=== PATIENT | male | born 1970 | race African-American/Black ===

== ENCOUNTER 2019-06-05 10:06 | Emergency (ER) | payer BC, MEDICAID ==
[~2019-06-05] VITALS: Ht 175.3 cm; Wt 97.0 kg
[2019-06-05 10:11] VITALS: BP 134/67
[2019-06-05] MEDS ORDERED: LIDOCAINE HCL 1% 20ML VIAL (Pyxis) INJ INFIL ONE (16:00)
== END 2019-06-05 17:56 | disposition home or self-care (01) ==
LOC: ER 10:06
DX: S60.453A Superficial foreign body of left middle finger, initial encounter (principal); Z98.890 Other specified postprocedural states; F12.10 Cannabis abuse, uncomplicated; X58.XXXA Exposure to other specified factors, initial encounter; Y93.89 Activity, other specified; Y92.89 Other specified places as the place of occurrence of the external cause; Y99.8 Other external cause status
CPT/HCPCS: 99284

== ENCOUNTER 2020-10-13 11:04 | Emergency (ER) | payer BC, MEDICAID ==
[~2020-10-13] VITALS: Ht 177.8 cm; Wt 98.0 kg
[2020-10-13 11:40] VITALS: BP 133/78
[2020-10-13] MEDS ORDERED: VISCOUS LIDOCAINE 2% 15 ML UDC PO STA ×2 (12:08→12:45)
[2020-10-13] MEDS ORDERED: MAGNESIUM/ALUMINUM HYDROXIDE/SIMETHICONE 30ML UDC PO STA ×2 (12:08→12:45)
[2020-10-13] MEDS ORDERED: FAMOTIDINE 20MG/2ML VIAL IV ONE (12:45)
[2020-10-13 12:53] LABS: BASOPHILS % 0.2 % (0.0-2.0); EOSINOPHILS % 2.3 % (0.0-5.0); HEMATOCRIT. 41.6 % (42.0-52.0); HEMOGLOBIN. 14.7 g/dL (14.0-18.0); LYMPHOCYTES % 37.9 % (20.0-50.0); MEAN CORPUSCULAR HEMOGLOBIN 33.1 pg (28.0-32.0); MEAN CORPUSCULAR VOLUME 93.5 fL (80.0-94.0); MONOCYTES % 9.9 % (2.0-8.0); NEUTROPHILS % 49.7 % (40.0-76.0); PLATELET 271 x1000/uL (130-400); RED BLOOD CELL COUNT 4.45 mill/uL (4.7-6.1); RED CELL DISTRIBUTION WIDTH 14.3 % (11.6-14.6)
[2020-10-13 13:01] LABS: CHLORIDE 106 mEq/L (98-107)
[2020-10-13 13:09] LABS: PROTHROMBIN TIME 10.5 sec (9.6-11.0)
[2020-10-13 13:12] LABS: CLARITY URINE CLEAR (CLEAR); COLOR URINE YELLOW (YELLOW); KETONES URINE NEGATIVE (NEGATIVE); LEUKOCYTE ESTERASE URINE NEGATIVE (NEGATIVE); NITRITE URINE NEGATIVE (NEGATIVE); OCCULT BLOOD URINE NEGATIVE (NEGATIVE); PROTEIN URINE NEGATIVE (NEGATIVE); SPECIFIC GRAVITY URINE 1.023 (1.005-1.030); UROBILINOGEN URINE 0.2 E.U./dL (0.2-1.0)
[2020-10-13] MEDS ORDERED: OMEP20CA14 MT (14:11)
== END 2020-10-13 14:38 | disposition home or self-care (01) ==
LOC: ER 11:04
DX: K29.00 Acute gastritis without bleeding (principal); F12.10 Cannabis abuse, uncomplicated; F10.10 Alcohol abuse, uncomplicated; Y90.9 Presence of alcohol in blood, level not specified
CPT/HCPCS: 36415; 80053; 81003; 83690; 85025; 85610; 96374; 99283; J3490

== ENCOUNTER 2021-08-07 09:48 | Emergency (ER) | payer BC, MEDICAID ==
[~2021-08-07] VITALS: Ht 177.8 cm; Wt 100.0 kg
[~2021-08-07 09:48] MED LIST: OMEP20CA14 MT
[2021-08-07 09:53] VITALS: BP 142/94
[2021-08-07] MEDS ORDERED: ACETAMINOPHEN 325MG TABLET PO ONE (10:15)
[2021-08-07] MEDS ORDERED: LIDO1ADH5 TP (12:02)
== END 2021-08-07 12:06 | disposition home or self-care (01) ==
LOC: ER 09:48
DX: M25.512 Pain in left shoulder (principal); M19.012 Primary osteoarthritis, left shoulder; F12.10 Cannabis abuse, uncomplicated
CPT/HCPCS: 73030; 99283

== ENCOUNTER 2022-01-21 13:06 | Emergency (ER) | payer BC, MEDICAID ==
[~2022-01-21] VITALS: Ht 175.3 cm; Wt 90.0 kg
[~2022-01-21 13:06] MED LIST changes: +LIDO1ADH5 TP
[2022-01-21 13:28] VITALS: BP 134/89
[2022-01-21] MEDS ORDERED: NAPR-681 PO (16:45)
[2022-01-21] MEDS ORDERED: TRAM50TA3 PO (16:45)
== END 2022-01-21 17:30 | disposition home or self-care (01) ==
LOC: ER 13:06
DX: S42.402A Unspecified fracture of lower end of left humerus, initial encounter for closed fracture (principal); S53.402A Unspecified sprain of left elbow, initial encounter; F12.10 Cannabis abuse, uncomplicated; W18.30XA Fall on same level, unspecified, initial encounter; Y93.89 Activity, other specified; Y92.89 Other specified places as the place of occurrence of the external cause; Y99.8 Other external cause status
CPT/HCPCS: 99282

== ENCOUNTER 2022-08-17 08:50 | Emergency (ER) | payer BC, MEDICAID ==
[~2022-08-17] VITALS: Ht 182.9 cm; Wt 78.0 kg
[~2022-08-17 08:50] MED LIST changes: +NAPR-681 PO; +TRAM50TA3 PO
[2022-08-17 08:57] VITALS: BP 132/90
[2022-08-17] MEDS ORDERED: TOPUD PO (10:37)
== END 2022-08-17 11:06 | disposition home or self-care (01) ==
LOC: ER 08:50
DX: H92.01 Otalgia, right ear (principal); F12.10 Cannabis abuse, uncomplicated; Z79.899 Other long term (current) drug therapy
CPT/HCPCS: 99282

== ENCOUNTER 2023-08-19 20:01 | Emergency (ER) | payer BC, MEDICAID ==
[~2023-08-19] VITALS: Ht 172.7 cm; Wt 81.0 kg
[~2023-08-19 20:01] MED LIST changes: +TOPUD PO
[2023-08-19 20:12] VITALS: TEMP 98.6; O2SAT 100
[2023-08-19] MEDS: LIDOCAINE 5% PATCH TOP SCH (20:30)
[2023-08-19] MEDS ORDERED: KETOROLAC 15MG/ML VIAL IM ONE (20:30)
[2023-08-19] MEDS ORDERED: NAPR-1176 MT (22:40)
[2023-08-19] MEDS ORDERED: LIDO700A15 TP (22:40)
[2023-08-19 23:00] VITALS: BP 112/66; PULSE 93; RESP 12
[2023-08-19] MEDS: KETOROLAC 15MG/ML VIAL IM ONE (23:00)
== END 2023-08-19 22:45 | disposition home or self-care (01) ==
LOC: ER 20:01
DX: M54.9 Dorsalgia, unspecified (principal); F12.90 Cannabis use, unspecified, uncomplicated
CPT/HCPCS: 99282; J1885

== ENCOUNTER 2023-08-30 07:43 | Emergency (ER) | payer SELFPAY ==
[2023-08-19 20:12] VITALS: O2SAT 100
[~2023-08-30 07:43] MED LIST changes: +LIDO700A15 TP; +NAPR-1176 MT
[2023-08-30] MEDS ORDERED: BENZ150C8 MT (09:18)
[2023-08-30] MEDS ORDERED: DEXTL MT (09:18)
[2023-08-30 09:33] VITALS: BP 151/88; PULSE 93; RESP 18; TEMP 98.6
== END 2023-08-30 15:15 | disposition home or self-care (01) ==
LOC: ER 10:23
DX: R05.9 Cough, unspecified (principal); J40 Bronchitis, not specified as acute or chronic; B34.9 Viral infection, unspecified; F12.10 Cannabis abuse, uncomplicated
CPT/HCPCS: 71045; 99283

== ENCOUNTER 2024-04-02 09:10 | Emergency (ER) | payer SELFPAY ==
[~2024-04-02] VITALS: Ht 180.3 cm; Wt 120.0 kg
[~2024-04-02 09:10] MED LIST changes: +BENZ150C8 MT; +DEXTL MT
[2024-04-02 09:28] VITALS: BP 122/81; PULSE 59; RESP 18; TEMP 98.1; O2SAT 99
[2024-04-02] MEDS ORDERED: AMOX-494 MT (11:06)
== END 2024-04-02 11:56 | disposition home or self-care (01) ==
LOC: ER 09:19
DX: K04.7 Periapical abscess without sinus (principal); F12.90 Cannabis use, unspecified, uncomplicated; F10.90 Alcohol use, unspecified, uncomplicated; Y90.9 Presence of alcohol in blood, level not specified; Z98.890 Other specified postprocedural states; Z79.1 Long term (current) use of non-steroidal anti-inflammatories (NSAID); Z79.899 Other long term (current) drug therapy
CPT/HCPCS: 99283

== ENCOUNTER 2024-07-14 17:14 | Emergency (ER) | payer BC, MEDICAID ==
[~2024-07-14] VITALS: Ht 175.3 cm; Wt 97.7 kg
[~2024-07-14 17:14] MED LIST changes: +AMOX-494 MT
[2024-07-14 17:24] VITALS: O2SAT 99
[2024-07-14 17:43] VITALS: BP 116/70; PULSE 95; RESP 18; TEMP 36.8; O2SAT 99
== END 2024-07-14 18:53 | disposition home or self-care (01) ==
LOC: ER 17:14
DX: Z00.00 Encounter for general adult medical examination without abnormal findings (principal); F12.10 Cannabis abuse, uncomplicated; Z79.899 Other long term (current) drug therapy
CPT/HCPCS: 99281